=== PATIENT | female | born 1945 | race Caucasian/White ===

== ENCOUNTER → 2016-08-25 | Outpatient (CLI) | payer MEDICARE | LOC: LAB.NP 10:45 | PROVIDERS: ATTEND Family Medicine | DX: E78.00 Pure hypercholesterolemia, unspecified (principal) ==

== ENCOUNTER 2016-09-04 18:04 | Emergency (ER) | payer MEDICARE ==
[2016-09-04 18:45] VITALS: TEMP 99.1
--- NOTE | 2016-09-04 19:36 | ED.PDOC ---
History of Present Illness - General Chief Complaint: Trauma Stated Complaint: s/p fall right knee pain Time Seen by Provider: 09/04/16 19:30 Source: patient Exam Limitations: no limitations Additional Information: WAS ON A CRUISE. SLIPPED AND FELL OFF SIDEWALK. CRUISE DID XRAY AND DX'D PATELLAR FRX. BEEN IN KNEE BRACE SINCE. HAS APPT WITH PCP IN AM. UNABLE TO BEAR WT D/T L KNEE PAIN. PAIN 0/10 AT REST AND DECLINES PAIN MED OFFER. LEFT CALF HAS ALSO HURT SINCE THE FALL, WELL RIGHT FOOT. . - History of Present Illness Severity: severe Improving Factors: immobilization, rest Worsening Factors: movement Associated Symptoms: denies symptoms Allergies/Adverse Reactions: Allergies Codeine Allergy (Verified 09/04/16 18:45) Home Medications: Ambulatory Orders Fenofibrate [Tricor] 145 mg PO DAILY 09/04/16 Metformin HCl 500 mg PO DAILY 09/04/16 Metoprolol Tartrate 50 mg PO DAILY 09/04/16 Review of Systems - Review of Systems Constitutional: Denies: chills, fever EENTM: States: no symptoms reported Respiratory: States: no symptoms reported Cardiology: States: no symptoms reported Gastrointestinal/Abdominal: States: no symptoms reported Genitourinary: States: no symptoms reported Musculoskeletal: States: joint pain, joint swelling, muscle pain, muscle stiffness. Denies: back pain, neck pain Skin: States: no symptoms reported Neurological: States: no symptoms reported. Denies: numbness, paresthesia Endocrine: States: no symptoms reported Hematologic/Lymphatic: States: no symptoms reported All other Systems: Reviewed and Negative Past Medical History (General) - Patient Medical History Hx Hypertension: Yes Hx Diabetes: Yes Surgical History: appendectomy, cholecystectomy, Hysterectomy - Vaccination History Hx Tetanus, Diphtheria Vaccination: No Hx Influenza Vaccination: Yes Hx Pneumococcal Vaccination: Yes - Social History Hx Tobacco Use: No Hx Alcohol Use: No Hx Substance Use: No Hx Substance Use Treatment: No Hx Depression: No - Activities of Daily Living Hospice Agency (if applicable):: None - Female History Patient is a Female of Child Bearing Age (10 -59 yrs old): No Patient : No Family Medical History - Family History Mother Family History: Unknown Physical Exam - Physical Exam General Appearance: Alert, Well Nourished Ears, Nose, Throat: hearing grossly normal, normal ENT inspection Neck: non-tender, full range of motion, supple Respiratory: chest non-tender, lungs clear, normal breath sounds, no respiratory distress Cardiovascular/Chest: normal peripheral pulses, regular rate, rhythm Peripheral Pulses: dorsalis pedis,right: 2+, dorsalis pedis,left: 2+, posterior tibialis,right: 2+, posterior tibialis,left: 2+ Gastrointestinal/Abdominal: normal bowel sounds, non tender, soft Back Exam: normal inspection, no vertebral tenderness Extremity: other - L PATELLA TTP. L KNEE PAIN WITH FLEXION. NO GRAVES'S CYST. L CALF TTP. NO PEDAL EDEMA. NO ECCHYMOSIS. NO DISCOLORATION/STREAKING. POS PAIN WITH FOOT DORSIFLEXION. R MIDFOOT TTP. Neurologic: php developer II-XII nml as tested, normal mood/affect, oriented x 3 Skin Exam: normal color, warm/dry Lymphatic: no adenopathy Progress - Results/Orders Results/Orders: LEFT 3MM ANTERIORLY DISPLACED TRANSVERSE PATELLAR FRACTURE PER X-RAY. R FOOT XRAY NEG. INR AND CK-MB NL. D-DIMER BARELY ELEVATED, C/W RECENT TRAUMA AND IT IS NOT ELEVATED ENOUGH TO BE CONCERNED FOR DVT THUS U/S NOT INDICATED. SAFE FOR D/C TO HOME. FAMILY ARE AT BEDSIDE WHO CAN HELP HER AT HOME. SHE HAS APPT WITH HER PCP, DR. LAGUNA, TOMORROW AM, WHO CAN HELP ARRANGE ORTHOPEDIC CARE. Departure - Departure Clinical Impression: Patellar fracture Disposition: Discharge to Home or Self Care Condition: Fair Departure Forms: ED Discharge - Pt. Copy, Patient Portal Self Enrollment Instructions: DI for Patella Fracture Diet: resume usual diet, other Activity: other - Non-weight bearing right leg. Referrals: Wan Laguna MD [Primary Care Provider] - 1-2 Days Home Medications: Ambulatory Orders Fenofibrate [Tricor] 145 mg PO DAILY 09/04/16 Metformin HCl 500 mg PO DAILY 09/04/16 Metoprolol Tartrate 50 mg PO DAILY 09/04/16 Additional Instructions: Please continue to keep the knee immobilized as you have been with the leg brace /splint. Please keep your doctor appt tomorrow, at which time he can help arrange orthopedic care. Please do not bear weight on the leg tonight. If you start having pain, you may take ibuprofen 800 mg 3 times per day.
--- NOTE | 2016-09-04 20:25 | RAD ---
EXAM DESCRIPTION: Knee,Left 2 or More Views CLINICAL HISTORY: 70 years, Female, fell on curb COMPARISON: None. FINDINGS: Two views of the LEFT knee were performed. A transverse fracture passes through the midportion of the LEFT patella. No displacement is present in the transverse dimension. There is approximately 3 mm of anterior displacement of the distal fragment in comparison with the proximal portion of the patella. The overlying soft tissues are swollen. A small suprapatellar effusion is present. It is difficult to visualize the patellar tendon at its attachment with the inferior pole but the remainder of the patellar tendon appears grossly intact. The quadriceps tendon is partially obscured by the regional fluid. Bone mineralization is decreased. No additional fracture is identified. Bony alignment is maintained. IMPRESSION: Mildly displaced LEFT patellar fracture. Limited evaluation of the patellar tendon at its attachment to the inferior pole. Small suprapatellar effusion. Electronically signed by: Desiree Plummer MD 09/04/2016 8:23 PM WAREHOUSE PACKAGING SUPERVISOR
--- NOTE | 2016-09-04 20:28 | RAD ---
EXAM DESCRIPTION: Foot,Right 3 Views CLINICAL HISTORY: 70 years, Female, stepped off curb COMPARISON: None. FINDINGS: Three views of the RIGHT foot were performed. Bone mineralization is overall decreased. No localized soft tissue swelling or radiopaque foreign body is identified. No fracture is detected. Bony alignment is maintained. No suspicious calcification is seen. Enthesopathy projects off the calcaneus at the insertion sites of the plantar aponeurosis and Achilles tendon. IMPRESSION: Osteopenia. No RIGHT foot fracture. Electronically signed by: Desiree Plummer MD 09/04/2016 8:26 PM HIGH SCHOOL SPORTS COACH
[2016-09-04 21:53] VITALS: BP 164/74
[2016-09-04 22:55] VITALS: O2SAT 98
--- NOTE | 2016-10-02 23:49 | RAD ---
EXAM DESCRIPTION: Foot,Right 3 Views CLINICAL HISTORY: 70 years, Female, stepped off curb COMPARISON: None. FINDINGS: Three views of the RIGHT foot were performed. Bone mineralization is overall decreased. No localized soft tissue swelling or radiopaque foreign body is identified. No fracture is detected. Bony alignment is maintained. No suspicious calcification is seen. Enthesopathy projects off the calcaneus at the insertion sites of the plantar aponeurosis and Achilles tendon. IMPRESSION: Osteopenia. No RIGHT foot fracture. Electronically signed by: Desiree Plummer MD 09/04/2016 8:26 PM MANAGER MASSAGE DEPARTMENT
== END 2016-09-04 22:55 | disposition home or self-care (01) ==
LOC: ER 18:04
DX: S82.032A Displaced transverse fracture of left patella, initial encounter for closed fracture (principal); I10 Essential (primary) hypertension; E11.9 Type 2 diabetes mellitus without complications; Z79.899 Other long term (current) drug therapy; Z88.6 Allergy status to analgesic agent; W19.XXXA Unspecified fall, initial encounter; Y92.89 Other specified places as the place of occurrence of the external cause

== ENCOUNTER → 2016-09-16 | Outpatient (CLI) | payer MEDICARE ==
--- NOTE | 2016-09-16 10:33 | RAD ---
EXAM DESCRIPTION: XR KNEE 4 OR MORE VIEWS CLINICAL HISTORY: 70 y/o ,F, CLOSED FX LEFT PATELLA S82.002D COMPARISON: September 04, 2016. IMPRESSION: Transversely oriented mid left patellar fracture again noted. There remains 3 mm of distraction. No definitive callus formation is noted. Joint effusion has decreased. No additional fractures noted. Electronically signed by: Alex Demarco MD 09/16/2016 10:31
--- NOTE | 2016-09-16 14:50 | US ---
EXAM DESCRIPTION: US LOWER EXTREMITY VEINS LIMITED/UNILATERAL/FOLLOW UP CLINICAL HISTORY: 70 y/o F, LEG PN COMPARISON: None TECHNIQUE: Grayscale, color Doppler and spectral Doppler imaging of the venous structures within the left lower extremity was performed. Static images were saved to the patient's medical record. FINDINGS: Normal compressibility and color Doppler flow of the venous structures within the left lower extremity. IMPRESSION: Negative for DVT within the left lower extremity. Electronically signed by: Alex Demarco MD 09/16/2016 14:48
== END | disposition home or self-care (01) ==
LOC: RAD 07:48
PROVIDERS: ATTEND Orthopaedic Surgery
DX: S82.002D Unspecified fracture of left patella, subsequent encounter for closed fracture with routine healing (principal); M79.605 Pain in left leg

== ENCOUNTER → 2016-09-26 | Outpatient (CLI) | payer MEDICARE ==
--- NOTE | 2016-09-26 10:44 | RAD ---
EXAM DESCRIPTION: XR KNEE 4 OR MORE VIEWS CLINICAL HISTORY: 70 y/o ,F, CLOSED FRACTURE OF PATELLA COMPARISON: September 16, 2016 IMPRESSION: The transversely oriented fracture through the patella is again noted. Callus formation noted about the fracture site. There is less distraction on today's study when compared to prior exam. No new fractures noted. Electronically signed by: Alex Demarco MD 09/26/2016 10:41
== END | disposition home or self-care (01) ==
LOC: RAD 09:02
PROVIDERS: ATTEND Orthopaedic Surgery
DX: S82.002D Unspecified fracture of left patella, subsequent encounter for closed fracture with routine healing (principal)

== ENCOUNTER → 2016-10-10 | Outpatient (CLI) | payer MEDICARE ==
--- NOTE | 2016-10-10 09:35 | RAD ---
EXAM DESCRIPTION: Knee,Left Complete CLINICAL HISTORY: 70 years Female, CLOSED FX OF PATELLA COMPARISON: September 26, 2016 FINDINGS: Again seen is a minimally displaced, transversely oriented midpatellar fracture. The fracture remains nonunited, unchanged from September 26. No significant joint effusion is seen. No new abnormality or other significant interval change. IMPRESSION: Non or minimally displaced, nonunited mid patellar fracture, unchanged from September 26, 2016. Electronically signed by: Anthony Joyner MD 10/10/2016 9:34 AM DERRICKMAN HELPER
== END | disposition home or self-care (01) ==
LOC: RAD 07:44
PROVIDERS: ATTEND Orthopaedic Surgery
DX: S82.002D Unspecified fracture of left patella, subsequent encounter for closed fracture with routine healing (principal)

== ENCOUNTER → 2016-10-27 | Outpatient (CLI) | payer MEDICARE ==
--- NOTE | 2016-10-27 09:43 | RAD ---
EXAM DESCRIPTION: Knee,Left 2 or More Views CLINICAL HISTORY: 70 years,Female,CLOSED FX OF THE PATELLA COMPARISON: October 10 FINDINGS: The left knee demonstrates transverse fracture of the patella with about a millimeter of incongruency and mild annular fracture line and no change since prior study and mild blurring of the fracture line indicating healing. This fracture appeared more acute in the September 04 2016 study. The joint spaces are unremarkable. The soft tissues are unremarkable. No joint effusion. IMPRESSION: Minimally displaced but its table healing transverse fracture of the left patella Electronically signed by: Matthias La MD 10/27/2016 9:43 AM CDT
== END ==
LOC: RAD 08:00
PROVIDERS: ATTEND Orthopaedic Surgery
DX: S82.002D Unspecified fracture of left patella, subsequent encounter for closed fracture with routine healing (principal)

== ENCOUNTER → 2017-04-03 | Outpatient (CLI) | payer MEDICARE | END | disposition home or self-care (01) | LOC: GMAJ 10:37 | PROVIDERS: ATTEND Family Medicine | DX: E11.9 Type 2 diabetes mellitus without complications (principal); I10 Essential (primary) hypertension ==

== ENCOUNTER → 2017-10-09 | Outpatient (CLI) | payer MEDICARE | LOC: GMAJ 11:25 | PROVIDERS: ATTEND Family Medicine | DX: I10 Essential (primary) hypertension (principal) ==

== ENCOUNTER 2019-12-04 14:10 | Emergency (ER) | payer MEDICARE ==
--- NOTE | 2019-12-04 14:33 | ED.PDOC ---
History of Present Illness - General Time Seen by Provider: 12/04/19 14:16 Source: patient, RN notes reviewed, Vital Signs reviewed, family Exam Limitations: no limitations - History of Present Illness Initial Comments: Pt is a 74 yo female with PMH of HTN and DM who presents to ED for drainage from right hip incision. States she had right hip fracture and was admitted to hospital in [place], [place] and had ORIF of right hip fracture by Dr. Paul Perez on 11/23 and was released from hospital on 11/26. States she has been doing well at home and Home Health Nurse comes to change dressing. This morning, Nurse noted drainage on her dressing and notified her PCP who told her to come to ED for evaluation. Pt states she had a temp of 100 this morning. Denies increased pain to right hip, N/V, cough. States she is feeling well. She does states there is an area of swelling past 2 days at the lower portion of her surgical incision. Allergies/Adverse Reactions: Allergies Codeine Allergy (Verified 09/04/16 18:45) Home Medications: Ambulatory Orders Metformin HCl [Metformin Hydrochloride] 500 mg PO DAILY 09/04/16 Calcium Carbonate-Vitamin D [Calcium 600+D 600-400 mg-Unit] 1 tab PO BID 12/04/19 Cephalexin Monohydrate [Keflex] 500 mg PO QID 7 Days #28 cap 12/04/19 Cyclobenzaprine HCl [Flexeril] 10 mg PO TID PRN 12/04/19 Fenofibrate 54 mg PO DAILY 12/04/19 Ferrous Sulfate 325 mg PO DAILY 12/04/19 Gabapentin 100 mg PO TID 12/04/19 Multiple Vitamins W/ Minerals [Multivitamin Adults] 1 tablet PO DAILY 12/04/19 Review of Systems - Review of Systems Constitutional: Denies: chills, fever, weakness EENTM: States: no symptoms reported Respiratory: Denies: cough, short of breath Cardiology: Denies: chest pain, palpitations, syncope Gastrointestinal/Abdominal: Denies: abdominal pain, diarrhea, nausea, vomiting Genitourinary: Denies: dysuria, frequency, hematuria Musculoskeletal: Denies: back pain, neck pain Skin: States: other - As per HPI Neurological: Denies: headache, paresthesia All other Systems: Reviewed and Negative Past Medical History (General) - Patient Medical History Hx Hypertension: Yes Hx Diabetes: Yes - Vaccination History Hx Tetanus, Diphtheria Vaccination: No Hx Influenza Vaccination: Yes Hx Pneumococcal Vaccination: Yes - Social History Hx Tobacco Use: No Hx Alcohol Use: No Hx Substance Use: No Hx Substance Use Treatment: No Hx Depression: No - Female History Patient : No Family Medical History - Family History Mother Family History: Unknown Physical Exam - Physical Exam General Appearance: Alert, Comfortable, No apparent distress Neck: non-tender, full range of motion, supple Respiratory: chest non-tender, lungs clear, normal breath sounds, no respiratory distress Cardiovascular/Chest: regular rate, rhythm, no edema, no murmur Gastrointestinal/Abdominal: non tender, soft, no pulsatile mass Back Exam: no CVA tenderness, no vertebral tenderness Extremity: normal range of motion, no pedal edema, no calf tenderness Neurologic: no motor/sensory deficits, alert, normal mood/affect Comments: Right lateral hip has a 8 cm surgical incision that is approximated with nuzhat. Wound is closed. There is no erythema or warmth. There is mild puffiness posterior and inferior to the inferior end of the incision. It has the appearance of a small seroma and is in a dependant location when pt is sitting or lying down. i am unable to express any fluid to culture at this time. There is no drainage and pt is NTTP over the right hip. Progress - Progress Progress: 12/04/19 15:23 I have called and left a message for Dr. Perez, patients ortho, at his clinic at [phone]. 12/04/19 15:27 I called clinic for Dr. Laguna, pt PCP, and nurse will norify him of likely post op seroma and will plan to discharge and f/u with him in clinic. 12/04/19 15:36 Pt had right hip fracture surgery 11/[address] Perez. States she has been healing well. Today Home Health Nurse noticed small amount of drainage on dressing and sent to ED for evaluation. Afebrile with stable VS. Labs reassuring. On exam, there is no erythema or tenderness. No drainage at this time. There is a possible small post op seroma just inferior to the distal portion of surgical incision when pt is lying flat. No tenderness in this area and no drainage. I see no sign of abscess and there is no skin erythema. I have left a message with her surgeon, but not recieved return call. i have notified her PCP she will be going home and plan for her to f/u in clinic within 48 hours. Will start prophylactic Keflex due to small amount of drainage earlier this morning. No discharge to culture at this time. Pt states she has f/u appointment scheduled with Dr. Perez for recheck and staple removal on Monday. - Results/Orders Results/Orders: EXAM DESCRIPTION: Hip,Right 2 Views CLINICAL HISTORY: 74 years Female, recent right hip surgery, drainage from incision COMPARISON: None. FINDINGS: Two views of the right hip show postoperative changes related to recent right hip arthroplasty. No loosening or other hardware complication. No periprosthetic or other fracture. Subcutaneous soft tissue edema lateral to the surgical site may be related to prior surgery versus cellulitis. No soft tissue gas to suggest abscess. IMPRESSION: Postoperative changes related to recent right hip ar throplasty without hardware complication. Soft tissue swelling overlying the surgical site laterally, cellulitis should be considered. No radiographic evidence of abscess. 12/04/19 14:26 IV:Start .ONCE WOUND CULTURE Stat 12/04/19 14:52 BLOOD CULTURE Stat Laboratory Results - last 24 hr 12/04/19 12/04/19 14:38 14:38 WBC 9.9 RBC 2.86 L Hgb 9.0 L Hct 26.2 L MCV 91.4 MCH 31.4 H MCHC 34.3 RDW 13.0 Plt Count 678 H MPV 6.5 L Absolute Neuts (auto) 7.30 H Absolute Lymphs (auto) 1.60 Absolute Monos (auto) 0.80 Absolute Eos (auto) 0.20 Absolute Basos (auto) 0.10 Neutrophils % 74.1 Lymphocytes % 15.9 L Monocytes % 7.7 Eosinophils % 1.6 Basophils % 0.7 Sodium 132 L Potassium 3.7 Chloride 98 L Carbon Dioxide 26 Anion Gap 11.7 L BUN 18 Creatinine 0.82 BUN/Creatinine Ratio 22.0 H Random Glucose 133 H Serum Osmolality 268.3 L Calcium 9.6 Departure - Departure Clinical Impression: post op seroma right leg, Essential hypertension Time of Disposition: 15:29 Disposition: Discharge to Home or Self Care Condition: Good Instructions: DI for Postoperative Pain Referrals: Wan Laguna MD [Primary Care Provider] - 1-2 Days Prescriptions: Cephalexin Monohydrate [Keflex] 500 mg PO QID 7 Days #28 cap Home Medications: Ambulatory Orders Metformin HCl [Metformin Hydrochloride] 500 mg PO DAILY 09/04/16 Calcium Carbonate-Vitamin D [Calcium 600+D 600-400 mg-Unit] 1 tab PO BID 12/04/19 Cephalexin Monohydrate [Keflex] 500 mg PO QID 7 Days #28 cap 12/04/19 Cyclobenzaprine HCl [Flexeril] 10 mg PO TID PRN 12/04/19 Fenofibrate 54 mg PO DAILY 12/04/19 Ferrous Sulfate 325 mg PO DAILY 12/04/19 Gabapentin 100 mg PO TID 12/04/19 Multiple Vitamins W/ Minerals [Multivitamin Adults] 1 tablet PO DAILY 12/04/19 Comments: You have a post operative seroma to surgical area. You will need to follow up with Dr. Laguna or your orthopedist, Dr. Perez, in 1-2 days for recheck. SRP given.
--- NOTE | 2019-12-04 15:29 | RAD ---
EXAM DESCRIPTION: Hip,Right 2 Views CLINICAL HISTORY: 74 years Female, recent right hip surgery, drainage from incision COMPARISON: None. FINDINGS: Two views of the right hip show postoperative changes related to recent right hip arthroplasty. No loosening or other hardware complication. No periprosthetic or other fracture. Subcutaneous soft tissue edema lateral to the surgical site may be related to prior surgery versus cellulitis. No soft tissue gas to suggest abscess. IMPRESSION: Postoperative changes related to recent right hip arthroplasty without hardware complication. Soft tissue swelling overlying the surgical site laterally, cellulitis should be considered. No radiographic evidence of abscess. Electronically signed by: Anthony Joyner MD 12/04/2019 3:27 PM CDT
[2019-12-04 15:57] VITALS: BP 135/62; TEMP 98.7; O2SAT 97
== END 2019-12-04 15:50 | disposition home or self-care (01) ==
LOC: ER 14:10
DX: L76.34 Postprocedural seroma of skin and subcutaneous tissue following other procedure (principal); I10 Essential (primary) hypertension; E11.9 Type 2 diabetes mellitus without complications; Z79.899 Other long term (current) drug therapy